=== PATIENT | female | born 2005 | race Two or more races ===

== ENCOUNTER 2024-05-31 18:08 | Emergency (ER) | payer MEDICAID, OTHER ==
[~2024-05-31] VITALS: Ht 170.2 cm; Wt 86.3 kg
[2024-05-31 18:10] VITALS: BP 126/85; PULSE 96; RESP 16; O2SAT 98
== END 2024-05-31 23:11 | disposition left against medical advice (07) ==
LOC: ER 18:08 → EDBD 18:08 → ER 23:11
DX: T78.49XA Other allergy, initial encounter (principal); F41.9 Anxiety disorder, unspecified; Z53.21 Procedure and treatment not carried out due to patient leaving prior to being seen by health care provider; X58.XXXA Exposure to other specified factors, initial encounter